=== PATIENT | male | born 1985 | race African-American/Black ===

== ENCOUNTER 2018-10-09 19:19 | Emergency (ER) | payer SELFPAY ==
[2018-10-09] MEDS ORDERED: Meclizine HCl 25 MG TAB ONE (19:59)
== END 2018-10-09 20:20 | disposition home or self-care (01) ==
LOC: ERS 19:19
DX: H81.10 Benign paroxysmal vertigo, unspecified ear (principal); H69.91 Unspecified Eustachian tube disorder, right ear
CPT/HCPCS: 93005; J8499